=== PATIENT | male | born 1985 ===

== ENCOUNTER 2017-09-05 19:23 | Emergency (ER) | payer SELFPAY ==
[2017-09-05 20:04] VITALS: BP 127/74; PULSE 103; RESP 20; TEMP 99.1; O2SAT 94
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
[2017-09-05] MEDS: Tmp-Smz 800 mg-160 mg DS Tab PO ONE (21:42)
[2017-09-05] MEDS: Naproxen 500 MG TAB PO ONE (21:42)
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
== END 2017-09-05 22:30 | disposition home or self-care (01) ==
LOC: H.ER 19:23
DX: S00.33XA Contusion of nose, initial encounter (principal); W22.8XXA Striking against or struck by other objects, initial encounter; Y92.89 Other specified places as the place of occurrence of the external cause; L03.019 Cellulitis of unspecified finger; F41.9 Anxiety disorder, unspecified